=== PATIENT | male | born 1955 | race Caucasian/White ===

== ENCOUNTER 2017-02-03 14:35 | Day surgery (SDC) | payer BC ==
[~2017-02-03 14:35] MED LIST: BUPIVACAINE HCL 0.5% MPF 10 ML SOL ONE; FENTANYL 100MCG/2ML SOL ONE; LIDOCAINE HCL 1% MPF SOL ONE; MIDAZOLAM 2 MG/2 ML SOL ONE; PROPOFOL 500 MG/50 ML EMU IV ONE
[2017-02-03 15:23] VITALS: RESP 16; TEMP 97.7
[2017-02-03 15:54] VITALS: BP 136/78; PULSE 110; O2SAT 98
== END 2017-02-03 16:11 | disposition home or self-care (01) ==
LOC: SURG 14:35
PROVIDERS: ATTEND Orthopaedic Surgery
DX: M65.9 Synovitis and tenosynovitis, unspecified (principal)
CPT/HCPCS: 23101; 82962; 87106; 99001; J2001 ×2; J2250; J2704; J3010; A6402

== ENCOUNTER 2018-06-13 08:13 | Day surgery (SDC) | payer BC, OTHER ==
[~2018-06-13 08:13] MED LIST changes: -BUPIVACAINE HCL 0.5% MPF 10 ML SOL ONE; -FENTANYL 100MCG/2ML SOL ONE; +LIDOCAINE HCL 1% MPF 30 SOL ONE; -LIDOCAINE HCL 1% MPF SOL ONE; -MIDAZOLAM 2 MG/2 ML SOL ONE
[2018-06-13 10:21] VITALS: BP 146/75; PULSE 76; RESP 20; TEMP 97.1; O2SAT 97
== END 2018-06-13 10:30 | disposition home or self-care (01) | DRG 951 ==
LOC: SURG 08:13
PROVIDERS: ATTEND Surgery
DX: Z12.11 Encounter for screening for malignant neoplasm of colon (principal); E11.65 Type 2 diabetes mellitus with hyperglycemia; D12.5 Benign neoplasm of sigmoid colon
CPT/HCPCS: 99001; J2001; J2704